=== PATIENT | female | born 1995 | race Caucasian/White ===

== ENCOUNTER 2018-11-29 08:22 | Day surgery (SDC) | payer MEDICAID, SELFPAY ==
[2018-11-29 08:35] VITALS: BP 139/88; PULSE 92; RESP 18; TEMP 36.9; O2SAT 98
[2018-11-29] MEDS: Lactated Ringers 1,000 ML 80 ML IV (09:02)
[2018-11-29] MEDS: Bupivacaine 0.5% Pres-Free 30 ML VIAL (10:39)
[2018-11-29] MEDS: Sodium Bicarbonate 50 MEQ/50 ML VIAL (10:40)
[2018-11-29] MEDS: Lidocaine 1% Multi-Dose 50 ML VIAL (10:40)
--- NOTE | 2018-11-29 10:46 | PDOC.DSDIS_ITS ---
Discharge Plan Disposition Patient Disposition: HOME Condition: Good Discharge Details Reason For Visit: Left Dorsal Wrist Ganglion Attending Provider: Nghia Cervantes Primary Care Provider: Michelle Mccray Home Meds and New Rx's Prescriptions: New acetaminophen 500 mg tablet 1,000 mg PO Q8H PRN (Reason: pain) Qty: 60 RF: 3 ibuprofen 600 mg tablet 600 mg PO TID PRNQty: 30 RF: 3 Continued mebeverine 135 mg PO PRN (Reason: for IBS) RF: 0 hyoscine butylbromide 10 mg PO AC PRN (Reason: IBS) RF: 0 venlafaxine 75 mg tablet 75 mg PO DAILY Qty: 90 RF: 3 venlafaxine 37.5 mg tablet 37.5 mg PO DAILY Qty: 90 RF: 3 Discharge Instructions Additional Instructions: Activity: You should keep the hand elevated as much as possible for the first few days. You may use the other fingers as tolerated but avoid trying to do too much too soon. You may perform light activities with the splint/brace in place. You may remove the brace when not using the hand. Dressing/Cast: Your dressing should stay in place for at least 48 hours. After that, you may remove it and the wound may get wet. You can keep it covered with light gauze. Medications: - You should take Tylenol and Ibuprofen for baseline pain control. - You may apply ice over the back of the hand. Follow-up: 7 days Referrals: Nghia Cervantes MD [ [facility] STAFF PHYSICIAN] - Equipment/Supplies: Splint Activity:: Elevate Remove Dressings/Wound Care:: 48 hours Shower/Bathe:: 48 hours Diet:: As Tolerated Discharge Orders Discharge Orders: Discharge Order (Routine); Ordered 11/29/18 Ordered By: Nghia Cervantes DS: Diagnosis Discharge Diagnosis (1) Ganglion of hand: Status: Acute
--- NOTE | 2018-11-30 09:33 | ROE_ITS ---
REPORT OF OPERATIVE PROCEDURE DATE OF SURGERY November 29, 2018 PREOPERATIVE DIAGNOSIS Left dorsal wrist ganglion. POSTOPERATIVE DIAGNOSIS Left dorsal wrist ganglion. SURGERY Excision of left dorsal wrist ganglion. SURGEON Nghia Cervantes M.D. ANESTHESIA Local. ESTIMATED BLOOD LOSS Minimal. COMPLICATIONS None. DISPOSITION The patient was taken back to the Same Day Surgery in stable condition. INDICATION FOR PROCEDURE Mirta is a 23-year-old who has had some persistence with a ganglion cyst on the dorsum of her left h and. She has seen other providers in the past who have attempted aspiration. These aspiration attempt s have helped out, but only for a short period of time with it coming back larger every time. It has now been persistently present for over three months. It continues to interfere with daily activities, especially with wearing anything around the wrist. It causes some pain when it is stretched. Given t hat it has returned after aspiration, and it continues to bother her, I did offer an excision of the cyst. I reviewed the risks of the procedure, to include bleeding, infection, pain, stiffness, damage to nerves and vessels, damage to muscles and tendons, recurrence. Despite these risks, she elected to proceed. PROCEDURE DESCRIPTION Mirta was greeted in the preoperative holding area. Her identity was confirmed and the correct side was identified and marked. The consent was reviewed with the patient and signed. She was then taken back to the Operating Room. She was placed in the supine position. The left hand was placed on the hand table. The hand was prepped with ChloraPrep and draped in a standard fashion. Prophylactic antibiotics were given in the form of cefazolin. A timeout was performed for safe surge ry. The surgical field was then anesthetized with 1% lidocaine. After anesthesia had been developed a 2-cm incision was made over the dorsum of the hand at the level of the ganglion cyst and just proxim al to it. This was taken down sharply through the skin. No tourniquet was used and bleeding was minim ized with retraction. The soft tissue were dissected and the ganglion was easily palpable. The multi ple layers around the ganglion cyst were dissected and the single layer of the ganglion cyst was easi ly identifiable. There were no abnormal features to this. There was no features consistent with anyth ing else, except the ganglion cyst. The ganglion cyst was dissected from the distal extend so that it was able to be brought from without the wound. It continued to be dissected down as it passed just r adial to the fourth compartment extensor tendons of the hand. It was dissected off at the ring finger EDC tendon and continued to be followed down into the wrist joint. The cyst was eventually deflated and the stalk was traced the wrist joint and wrist capsule. It was excised from the wrist capsule and this area of synovitis was debrided with a rongeur and also left open. There was no remnant cyst mat erial. The tendons were inspected and showed no signs of damage. The wound was then thoroughly irriga mayur. The deep tissues were closed with #3-0 Vicryl and the skin was closed a running #4-0 Monocryl. S kin glue was applied. The wound was dressed with 4x4s, Confirm and Parish wrap and a wrist brace was jakub lied. At the end of the case, all counts were correct. She tolerated the procedure well. She was jarvis sferred back to the Same Day Surgery in stable condition.
== END 2018-11-29 11:09 | disposition home or self-care (01) ==
PROVIDERS: PCP Student in an Organized Health Care Education/Training Program; Visit Provider Student in an Organized Health Care Education/Training Program
PROC: (CPT 25111; principal; 2018-11-29 10:00)
DX: M67.432 Ganglion, left wrist (principal)
CPT/HCPCS: 25111; J0690; L3908

== ENCOUNTER 2019-01-02 12:00 | Outpatient (CLI) | payer MEDICAID, SELFPAY ==
--- NOTE | 2019-01-02 11:05 | DI.RAD_ITS ---
SYMPTOM/DIAGNOSIS: PAIN,S/P FALL, W19.XXXA,M25.552,M54.5 LEFT HIP AND PELVIS: Two views were obtained. No fracture is seen. LUMBOSACRAL SPINE: Five views were obtained. The bones of the spine appear intact. The intervertebral disc spaces are well maintained. No abnormality of vertebral alignment is seen. There is no evidence of spondylolysis or spondylolisthesis. CONCLUSION: Normal lumbo-sacral spine.
== END 2019-01-02 12:20 ==
PROVIDERS: PCP Student in an Organized Health Care Education/Training Program; Visit Provider Nurse Practitioner
DX: M25.552 Pain in left hip (principal); M54.5 Low back pain; W19.XXXA Unspecified fall, initial encounter
CPT/HCPCS: 72110; 73502

== ENCOUNTER 2019-09-08 06:32 | Day surgery (SDC) | payer MEDICAID, SELFPAY ==
[2019-09-08 06:50] VITALS: BP 132/85; PULSE 77; RESP 18; TEMP 36.5; O2SAT 97
[2019-09-08] MEDS: Cephalexin 500 MG CAP 2000 MG PO (07:16)
--- NOTE | 2019-09-08 07:37 | PDOC.DSDIS_ITS ---
Discharge Plan Disposition Patient Disposition: HOME Condition: Good Discharge Details Reason For Visit: left dorsal wrist ganglion cyst Attending Provider: Nghia Cervantes Primary Care Provider: Michelle Mccray Home Meds and New Rx's Prescriptions: New acetaminophen 500 mg tablet 500 mg PO Q6H PRN (Reason: pain) Qty: 60 RF: 2 ibuprofen 600 mg tablet 600 mg PO TID PRN (Reason: pain) Qty: 60 RF: 0 Continued mebeverine 135 mg PO PRN (Reason: for IBS) RF: 0 hyoscine butylbromide 10 mg PO AC PRN (Reason: IBS) RF: 0 ibuprofen 600 mg tablet 600 mg PO QID PRN (Reason: pain) Qty: 180 RF: 3 propranolol 10 mg tablet 10 mg PO TID Qty: 90 RF: 0 bupropion HCl [Wellbutrin XL] 150 mg tablet extended release 24 hr 150 mg PO QAM Qty: 90 RF: 3 bupropion HCl 150 mg tablet sustained-release 12 hr 300 mg PO QDAY RF: 0 Discharge Instructions Additional Instructions: Activity: You should keep the hand elevated as much as possible for the first few days. You may use the other fingers as tolerated but avoid trying to do too much too soon. You may perform light activities with the splint/brace in place. You may remove the brace when not using the hand. Dressing/Cast: Your dressing should stay in place for at least 48 hours. After that, you may remove it and the wound may get wet. You can keep it covered with light gauze. Medications: - You should take Tylenol and Ibuprofen for baseline pain control. - You may apply ice over the back of the hand. Follow-up: 7-10 days Referrals: Nghia Cervantes MD [ [facility] STAFF PHYSICIAN] - Activity:: Elevate Remove Dressings/Wound Care:: 48 hours Shower/Bathe:: 48 hours Diet:: As Tolerated Discharge Orders Discharge Orders: Discharge Order (Routine); Ordered 09/08/19 Ordered By: Makayla Armenta DS: Diagnosis Discharge Diagnosis (1) Ganglion cyst of dorsum of left wrist: Status: Acute
[2019-09-08] MEDS: Lidocaine 1% Multi-Dose 50 ML VIAL (08:01)
[2019-09-08] MEDS: Sodium Bicarbonate 50 MEQ/50 ML VIAL (08:02)
[2019-09-08] MEDS: Bupivacaine 0.5% Pres-Free 30 ML VIAL (08:03)
--- NOTE | 2019-09-09 07:29 | W.PM.OP ---
Date of service: 09/08/19 Time of Service: 08:29 Operative Note Operative Note DATE OF PROCEDURE: 09/08/19 PRE-OP DIAGNOSIS: Recurrent left dorsal wrist ganglion cyst POST-OP DIAGNOSIS: same PROCEDURE: Excision of left dorsal wrist ganglion cyst SURGEON: Nghia Cervantes ANESTHESIA: local ESTIMATED BLOOD LOSS: 5 PATHOLOGY: none sent COMPLICATIONS: None Patient was transported to: same day Patient's condition: stable Findings: There is a multilobulated dorsal wrist cyst. It appeared to be trapped by some scar tissue and did trace back to the dorsal wrist capsule. Procedure Description: Mirta was greeted in the preoperative holding area. Her identity was confirmed and the correct side was identified and marked. The consent was reviewed the patient and signed. She was then taken back to the operating room. She was placed in the supine position. Antibiotics were provided for prophylaxis, cephalexin 2000 mg 30 minutes prior to incision. She was placed in the supine position on the bed. Her left hand was placed onto a hand table. The left arm is prepped with ChloraPrep and draped in a standard fashion. A timeout was performed for safe surgery. The surgical site was anesthetized with 1% lidocaine with epinephrine buffered with sodium bicarbonate. After adequate anesthesia had been obtained, a longitudinal incision was made over the dorsum of the left wrist. Blunt dissection carried down from the deeper layers through scar tissue. There is notable scar tissue over the dorsum of the wrist which was excised sharply. The cyst capsule was easily identifiable over the radial aspect of the wrist. This was dissected out and followed onto the dorsal wrist capsule. This did not directly communicate with the second portion of the cyst which was seen more ulnarly and attached to the extensor tendons. The wrist capsule was incised and debrided with a rongeur. All cyst elements were removed. Excess scar tissue was also debrided from the dorsum of the wrist. The deeper portions of the wound were anesthetized with 0.5% ropivacaine. The wound was thoroughly irrigated. There is no major bleeding. The wound was closed with 3-0 Vicryl and a 4-0 Monocryl. The wound was dressed with Xeroform, 4 x 4's, web roll, volar resting splint. She tolerated procedure well and transferred back to same day surgery in stable condition.
== END 2019-09-08 08:35 | disposition home or self-care (01) ==
PROVIDERS: PCP Student in an Organized Health Care Education/Training Program; Visit Provider Student in an Organized Health Care Education/Training Program
PROC: (CPT 25112; principal; 2019-09-08 07:30)
DX: M67.432 Ganglion, left wrist (principal)
CPT/HCPCS: 25112

== ENCOUNTER 2019-10-04 09:52 | Outpatient (REF) | payer MEDICAID, SELFPAY ==
[2019-10-05 14:15] LABS: Chlamydia Result Negative (Negative); GC Result Negative (Negative)
== END 2019-10-04 10:12 ==
LOC: LBN 09:52
PROVIDERS: PCP Student in an Organized Health Care Education/Training Program; Visit Provider Nurse Practitioner Women's Health
DX: Z11.3 Encounter for screening for infections with a predominantly sexual mode of transmission (principal)
CPT/HCPCS: 87491; 87591

== ENCOUNTER 2019-10-16 10:50 | Outpatient (CLI) | payer MEDICAID, SELFPAY ==
--- NOTE | 2019-10-16 09:05 | DI.RAD_ITS ---
EXAM: XR WRIST LT COMPLETE INDICATION: left wrist pain. COMPARISON: No exams were available for comparison TECHNIQUE: 2D digital imaging was performed. FINDINGS: No fracture or dislocation is seen. The carpal alignment appears normal. The bones are normally min eralized. IMPRESSION: Negative left wrist.
== END 2019-10-16 11:10 ==
PROVIDERS: PCP Student in an Organized Health Care Education/Training Program; Visit Provider Physician Assistant
DX: M25.532 Pain in left wrist (principal)
CPT/HCPCS: 73110

== ENCOUNTER 2019-10-23 08:14 | Outpatient (CLI) | payer MEDICAID, SELFPAY | END 2019-10-23 08:34 | PROVIDERS: PCP Student in an Organized Health Care Education/Training Program; Visit Provider Internal Medicine Cardiovascular Disease | DX: I10 Essential (primary) hypertension (principal); R00.0 Tachycardia, unspecified | CPT/HCPCS: 36415; 80053; 85027; 84443; 93005; 93010 ==

== ENCOUNTER 2019-10-23 10:13 | Outpatient (CLI) | payer MEDICAID, SELFPAY ==
[2019-10-23 11:03] LABS: HGB 13.6 g/dL (12.0-15.5); Mean Corp. HGB Concentration 33.2 g/dL (32.0-36.0); Mean Corpuscular Hemoglobin 28.9 pg (27.0-33.0); Mean Platelet Volume 9.8 fL (8.0-11.0); Platelet Count 284 x1000/uL (130-400); RBC 4.71 m/cumm (4.00-5.20); RBC Distribution Width 13.5 % (11.7-14.6); White Blood Cell Count 6.42 k/cumm (4.4-10.8)
[2019-10-23 12:15] LABS: ALT 17 U/L (14-59); AST 10 U/L (15-37); Alkaline Phosphatase 82 U/L (46-116); Anion Gap 9.5 mmol/L (3-11); BUN 11 mg/dL (7-18); Bilirubin, Total 0.2 mg/dL (0.2-1.0); CO2 25.5 mmol/L (21.0-32.0); CREATININE 0.96 mg/dL (0.55-1.02); Chloride 104 mmol/L (98-107); Glucose 92 mg/dL (74-106); Potassium 4.9 mmol/L (3.5-5.1); Sodium 139 mmol/L (136-145); TSH (W/Ref FT4) 1.58 uIU/mL (0.36-3.74); Total Protein 7.4 g/dL (6.4-8.2)
== END 2019-10-23 10:33 ==
PROVIDERS: PCP Student in an Organized Health Care Education/Training Program; Visit Provider Internal Medicine Cardiovascular Disease
DX: I10 Essential (primary) hypertension (principal)
CPT/HCPCS: 36415; 80053; 85027; 84443

== ENCOUNTER 2020-09-30 02:15 | Outpatient (CLI) | payer MEDICAID, SELFPAY ==
[2020-10-01 13:22] LABS: COVID-19 RT-PCR UVMMC Result Negative (Negative)
== END 2020-09-30 02:35 ==
PROVIDERS: PCP Student in an Organized Health Care Education/Training Program; Visit Provider Student in an Organized Health Care Education/Training Program
DX: Z20.822 Contact with and (suspected) exposure to COVID-19 (principal)
CPT/HCPCS: U0003

== ENCOUNTER 2021-04-08 12:05 | Outpatient (REF) | payer MEDICAID, SELFPAY ==
--- NOTE | 2021-04-08 10:30 | PAPFT_PTH ---
PATIENT: Mirta López LOC: [facility] U#:[id number] AGE/SX: 26/F ROOM: RE04/08/[address]: MARIA DEL CARMEN High : 1995 BED: DIS: 04/08/2021 SPEC #: [id number] RECD: 04/08/21 12:48 STATUS: JADYN REJaron #: [id number] GAEL: 04/08/21 10:[address]: Maye Woodruff DEPT: [facility] Cytology RECD BY: Wendi Arce ENTERED: 04/08/21 12:48 SP TYPE: PAPFT ASHLEE DR: Michelle Mccray, Tissues: 1 - CX/ENDOCX FOR PAP SMEARS Procedures: PAP THIN PREP/[facility] Screening Comments: [id number]
== END 2021-04-08 12:06 | disposition home or self-care (01) ==
LOC: LBN 12:05
PROVIDERS: PCP Student in an Organized Health Care Education/Training Program; Visit Provider Nurse Practitioner Family
DX: Z12.4 Encounter for screening for malignant neoplasm of cervix (principal)
CPT/HCPCS: 88142

== ENCOUNTER 2023-07-05 20:29 | Outpatient (REF) | payer BC, SELFPAY | END 2023-07-05 20:30 | disposition home or self-care (01) | LOC: NCHCN 20:29 | PROVIDERS: PCP Student in an Organized Health Care Education/Training Program; Visit Provider Student in an Organized Health Care Education/Training Program | DX: N89.8 Other specified noninflammatory disorders of vagina (principal) | CPT/HCPCS: 87480; 87510; 87660 ==

== ENCOUNTER 2024-01-10 05:13 | Outpatient (CLI) | payer BC, SELFPAY ==
[2024-01-10 16:36] LABS: HCT 43.2 % (36.0-46.0); HGB 14.6 g/dL (11.2-15.7); MCH 29.1 pg (27.0-33.0); MCHC 33.8 % (32.0-36.0); MCV 86 fL (80-95); MPV 9.1 fL (8.0-11.0); Platelet Count 273 10^3/uL (130-400); RBC 5.02 10^6/uL (3.93-5.22); RDW 12.8 % (11.7-14.6); RDW-SD 40.1 fL; WBC 7.64 10^3/uL (4.4-10.8)
[2024-01-10 18:34] LABS: Vitamin D 25 Total 13.6 ng/mL (30-100)
[2024-01-10 18:39] LABS: Anion Gap 11.6 mmol/L (3-11); BUN 9 mg/dL (7-18); CO2 23.4 mmol/L (21.0-32.0); Calculated LDL 186 mg/dL (<100); Chloride 103 mmol/L (98-107); Cholesterol 280 mg/dL (<200); Estimated GFR 77.72 (mL/min/1.73m2); Glucose 84 mg/dL (74-106); HDL Cholesterol 48 mg/dL (40-60); Sodium 138 mmol/L (136-145); TSH (W/Ref FT4) 2.14 uIU/mL (0.36-3.74); Triglyceride 233 mg/dL (<150); Vitamin B12 245 pg/mL (193-986)
[2024-01-10 19:01] LABS: Folate 4.7 ng/mL (8.6-20.0)
== END 2024-01-10 05:14 | disposition home or self-care (01) ==
LOC: LBO 05:13
PROVIDERS: PCP Student in an Organized Health Care Education/Training Program; Visit Provider Student in an Organized Health Care Education/Training Program
DX: F43.21 Adjustment disorder with depressed mood (principal); E53.8 Deficiency of other specified B group vitamins; K90.9 Intestinal malabsorption, unspecified; Z13.220 Encounter for screening for lipoid disorders; Z91.89 Other specified personal risk factors, not elsewhere classified; Z13.1 Encounter for screening for diabetes mellitus; R53.83 Other fatigue
CPT/HCPCS: 36415; 80048; 80061; 82306; 85027; 82607; 82746; 84443

== ENCOUNTER 2025-07-05 05:16 | Outpatient (CLI) | payer BC, SELFPAY ==
[2025-07-05 14:18] LABS: Abs Immature Grans 0.02 10^3/uL (0.0-0.06); HCT 42.3 % (36.0-46.0); HGB 13.8 g/dL (11.2-15.7); Immature Grans % 0.3 %; MCH 28.5 pg (27.0-33.0); MCHC 32.6 % (32.0-36.0); MCV 87 fL (80-95); MPV 9.1 fL (8.0-11.0); Platelet Count 257 10^3/uL (130-400); RBC 4.84 10^6/uL (3.93-5.22); RDW 12.6 % (11.7-14.6); RDW-SD 40.6 fL; WBC 6.37 10^3/uL (4.4-10.8)
[2025-07-05 14:26] LABS: Glucose Negative (Negative)
[2025-07-05 14:35] LABS: C & S Indicated? No; WBC Negative HPF (0-5)
[2025-07-05 15:41] LABS: ALT 24 U/L (14-59); AST 12 U/L (15-37); Albumin 4.4 g/dL (3.4-5.0); Alkaline Phosphatase 91 U/L (46-116); Anion Gap 9.8 mmol/L (3-11); BUN 17 mg/dL (7-18); Bilirubin, Total 0.6 mg/dL (0.2-1.0); CO2 26.2 mmol/L (21.0-32.0); Calcium 9.3 mg/dL (8.5-10.1); Calculated LDL 71 mg/dL (<100); Chloride 100 mmol/L (98-107); Cholesterol 153 mg/dL (<200); Estimated GFR 76.76 (mL/min/1.73m2); Glucose 91 mg/dL (74-106); HDL Cholesterol 48 mg/dL (>or=50); Potassium 3.8 mmol/L (3.5-5.1); Sodium 136 mmol/L (136-145); TSH 1.53 uIU/mL (0.36-3.74); Total Protein 8.1 g/dL (6.4-8.2); Triglyceride 174 mg/dL (<150)
[2025-07-05 16:00] LABS: Hemoglobin A1C 5.6 % (<5.7)
[2025-07-05 22:34] LABS: FSH 5.8 mIU/mL (See Note); LH 7.5 mIU/mL (See Note)
== END 2025-07-05 05:17 | disposition home or self-care (01) ==
LOC: LBO 05:16
PROVIDERS: Absent Provider Family Medicine; PCP Student in an Organized Health Care Education/Training Program; Referring Provider Family Medicine; Visit Provider Family Medicine
DX: N92.6 Irregular menstruation, unspecified (principal); R53.83 Other fatigue; Z13.9 Encounter for screening, unspecified
CPT/HCPCS: 36415; 80053; 80061; 81003; 81015; 83001; 83002; 83036; 84443; 85025